=== PATIENT | male | born 1955 | race Caucasian/White ===

== ENCOUNTER 2017-05-09 09:32 | Day surgery (SDC) | payer MEDICARE ==
[~2017-05-09 09:32] MED LIST: BUPIVACAINE HCL 0.5 % INJ/PF 30 ML SDV ONE; CLINDAMYCIN 600 MG/D5W RTU 600 MG/50 ML RTUPB IV PRN; ONDANSETRON HCL INJ/PF 4 MG/2 ML SDV ONE; SUCCINYLCHOLINE CHLORIDE INJ 200 MG/10 ML VIAL ONE
[2017-05-09 10:20] LABS: ANION GAP 14 (5-19); BLOOD UREA NITROGEN 6 mg/dL (7-20); CALCIUM 9.6 mg/dL (8.4-10.2); CARBON DIOXIDE 26 mmol/L (22-30); CHLORIDE 103 mmol/L (98-107); CREATININE RESULT 0.95 mg/dL (0.52-1.25); GLUCOSE 91 mg/dL (75-110); POTASSIUM 3.6 mmol/L (3.6-5.0); SODIUM 143.4 mmol/L (137-145)
[2017-05-09 10:21] LABS: HEMOGLOBIN 14.5 g/dL (13.5-17.0); HGB HCT DIFFERENCE -1.5; MEAN CORPUSCULAR HEMOGLOBIN 27.6 pg (27.0-33.4); MEAN CORPUSCULAR HGB CONC 32.2 g/dL (32.0-36.0); MEAN CORPUSCULAR VOLUME 86 fl (80-97); RED BLOOD COUNT 5.25 10^6/uL (4.35-5.55); RED CELL DISTRIBUTION WIDTH 13.9 % (11.5-14.0); WHITE BLOOD COUNT 13.1 10^3/uL (4.0-10.5)
--- NOTE | 2017-05-09 11:02 | RADIOLOGY REPORT (SQ) ---
EXAM DESCRIPTION: CHEST SINGLE VIEW COMPLETED DATE/TIME: 05/09/2017 10:21 am REASON FOR STUDY: PRE OP RM HOLDING 4 COMPARISON: None. EXAM PARAMETERS: NUMBER OF VIEWS: One view. TECHNIQUE: Single frontal radiographic view of the chest acquired. RADIATION DOSE: NA LIMITATIONS: None. FINDINGS: LUNGS AND PLEURA: No opacities, masses or pneumothorax. No pleural effusion. MEDIASTINUM AND HILAR STRUCTURES: No masses. Contour normal. HEART AND VASCULAR STRUCTURES: Heart normal in size. Normal vasculature. BONES: No acute findings. HARDWARE: Sternotomy wires. Heart valve OTHER: No other significant finding. IMPRESSION: NO ACUTE RADIOGRAPHIC FINDING IN THE CHEST. TECHNICAL DOCUMENTATION: JOB ID: [id number]
--- NOTE | 2017-05-09 12:50 | EKG REPORT ---
SEVERITY:- OTHERWISE NORMAL ECG - SINUS RHYTHM BORDERLINE LEFT AXIS DEVIATION : Confirmed by: Josefina Watt MD 09-May-2017 12:49:28
[2017-05-09] MEDS ORDERED: MIDAZOLAM 2 MG/2 ML INJ ONE (14:47)
[2017-05-09] MEDS ORDERED: FENTANYL CITRATE INJ/PF 250 MCG/5 ML AMPULE ONE (14:48)
[2017-05-09] MEDS ORDERED: PROPOFOL INJ 200 MG/20 ML VIAL IV ONE (14:48)
[2017-05-09] MEDS ORDERED: HYDROMORPHONE HCL INJ/PF 2 MG/ML AMPULE ONE (14:49)
[2017-05-09] MEDS ORDERED: MEPERIDINE HCL/PF INJ 25 MG/1 ML DISP.SYRIN IV PRN (15:23)
[2017-05-09] MEDS ORDERED: FENTANYL CITRATE INJ/PF 100 MCG/2 ML AMPUL IV PRN ×3 (15:23)
[2017-05-09] MEDS ORDERED: DIPHENHYDRAMINE HCL 50 MG/ML VIAL IV PRN (15:23)
--- NOTE | 2017-05-09 16:22 | PDOC DISCHARGE SUMMARY ---
Discharge Summary (SDC) - Discharge Final Diagnosis: Right Cubital Tunnel Syndrome Date of Surgery: 05/09/17 Discharge Date: 05/09/17 Condition: Good Treatment or Instructions: Schedule Follow Up w/ Dr. Radny Terry @ [facility] for Surgery to be seen in 10-14 days or as scheduled [place]: [place]: [place]: May remove dressing on postop day #3, keep incision covered and dry. Ice and elevate May begin finger range of motion attempting to make full fist. Stool softener of choice when on pain medication. Prescriptions: Oxycodone HCl/Acetaminophen [Percocet 5-325 mg Tablet] 1 - 2 tab PO ASDIR PRN # 30 tablet PRN Reason: Discharge Diet: As Tolerated Discharge Activity: No Lifting Over 10 Pounds, No Lifting/Push/Pulling Report the Following to Your Physician Immediately: Fever over 101 Degrees, Unusual Bleeding, Redness, Swelling, Warmth, Increased Soreness, Numbness, Tingling Sensation
[2017-05-09] MEDS ORDERED: MORPHINE SULFATE 10 MG/ML INJ IV PRN (16:25)
[2017-05-09] MEDS ORDERED: OXYCODONE-ACETAMINOPHEN 5-325 MG TABLET PO PRN (16:25)
[2017-05-09] MEDS ORDERED: ONDANSETRON HCL INJ/PF 4 MG/2 ML SDV IV PRN (16:25)
--- NOTE | 2017-05-09 16:25 | Operative Report ---
Operative Report DATE OF SURGERY: 05/09/17 PREOPERATIVE DIAGNOSIS: Right Cubital Tunnel Syndrome POSTOPERATIVE DIAGNOSIS: Same OPERATION: Right Cubital Tunnel Release W/ Subcutaneous Ulnar Nerve Transposition SURGEON: CHARLIE HOANG ANESTHESIA: GA COMPLICATIONS: None ESTIMATED BLOOD LOSS: Minimal PROCEDURE: Indication for above procedure: 61-year-old male with long-standing history of numbness and tingling in his ring and small finger on the right. Patient has increasing pain and notable atrophy of the right upper extremity. At that point we discussed treatment options including operative versus nonoperative intervention but given the atrophy and weakness the joint decision was made to proceed with cubital tunnel release with possible ulnar nerve transposition. Procedure In Detail: Patient was seen and evaluated in the preoperative holding area. The RIGHT upper extremity was initialized and marked. Patient received 2g of Ancef IV for bacterial prophylaxis. Patient was taken back to the operative room where transferred to the operative table and placed under general anesthesia. Once they were adequately anesthetized and a nonsterile tourniquet was placed on the upper extremity. A surgical team debriefing was performed ensuring all instrumentation was available, the surgical procedure was discussed with possible concerns reviewed. The upper extremity was prepped with chlorhexidine and alcohol and draped in a sterile fashion. A timeout was done identifying correct patient, procedure and extremity everyone in attendance agree with this and verbalized no concerns. The extremity was exsanguinated the tourniquet was inflated to 250 mmHg. A longitudinal skin incision was made centered over the cubital tunnel. Careful dissection was done through the overlying soft tissues any peripheral vasculature was carefully coagulated with bipolar cautery. The branches of the medial antebrachial cutaneous nerve were identified and protected throughout the entirety of the case. Once within the confines of the cubital tunnel the ulnar nerve was identified at the proximal aspect of the wound. At this level I carefully released a medial portion of the triceps and the medial intermuscular septum freeing the ulnar nerve proximally of any overlying soft tissue compression. I then continued to track the ulnar nerve distally releasing Magallon's fascia. At the level of the FCU aponeurosis between the 2 heads of the FCU muscle the fascia was released once again relieving any external compression from the ulnar nerve distally to the level of the first motor branch. I then freed up the nerve posteriorly ensuring there is no remaining soft tissue bands of tissue causing compression. During dissection of the nerve careful attention was directed at avoiding disruption of the ulnar nerve blood supply. Elbow range of motion was then done from full flexion to full extension with full flexion there was evidence of anterior subluxation of the ulnar nerve from the groove. And thus I determined patient would require anterior subcutaneous ulnar nerve transposition To perform the transposition skin incision was extended proximally and distally the nerve was further freed from overlying soft tissue distally within the FCU muscle bellies and proximally along the medial intermuscular septum. A section of the medial intermuscular septum was removed to avoid proximal compression or kinking of the nerve after transposition. A vessel loop was placed around the nerve and its posterior vascular suture both of which were carefully transposed anteriorly. At this point I checked the nerve proximally and distally to confirm there was no compression with range of motion from full flexion to full extension. Once I ensured no compression of the nerve I carefully dissected the subcutaneous tissues anteriorly taking note to avoid any branches of the medial antebrachial cutaneous nerve. Once I developed an appropriate sized flap of adipose tissue this was carefully secured to the medial epicondyle with a 3-0 Vicryl suture while a Melrose was placed at the level of the ulnar nerve to ensure no external compression from my subcutaneous flap. Once this was complete I once again flexed and extended the elbow ensuring no proximal or distal compression of the ulnar nerve. The tourniquet was then deflated. Compression was placed to the wound for 2 minutes. I then identified any peripheral bleeding and carefully coagulated with bipolar cautery. The wound was then irrigated with normal saline. Subcutaneous tissues were closed with interrupted 3-0 Monocryl closed with medhat. Wounds dressed with 4 x 4's, soft roll and a posterior splint with the elbow at 70. Sponge counts, instrument counts, needle counts counts were correct. Patient was then awoken from anesthesia. Transferred from the operating room table to the operating room stretcher. There was no intraoperative complications patient tolerated procedure well stable to PACU. Postoperative plan: Patient will follow-up in the office as scheduled which point we will proceed with wound check. He may begin gentle range of motion exercises but avoid any heavy lifting at her first postoperative appointment.
[2017-05-09] MEDS: FENTANYL CITRATE INJ/PF 100 MCG/2 ML AMPUL ONE ×2 (16:40→16:45)
[2017-05-09 19:15] VITALS: BP 150/103
== END 2017-05-09 19:15 | disposition home or self-care (01) ==
LOC: OROUT 09:32 → EDBD 11:45 → OROUT 19:15
PROVIDERS: ATTEND Orthopaedic Surgery
PROC: 01N40ZZ Release Ulnar Nerve, Open Approach (ICD-10-PCS; principal; 2017-05-09 12:15)
DX: G56.21 Lesion of ulnar nerve, right upper limb (principal); J45.909 Unspecified asthma, uncomplicated; I10 Essential (primary) hypertension; M19.90 Unspecified osteoarthritis, unspecified site; E66.9 Obesity, unspecified; Z96.653 Presence of artificial knee joint, bilateral; Z96.641 Presence of right artificial hip joint; Z68.39 Body mass index [BMI] 39.0-39.9, adult; Z79.1 Long term (current) use of non-steroidal anti-inflammatories (NSAID); Z79.899 Other long term (current) drug therapy; Z79.891 Long term (current) use of opiate analgesic
CPT/HCPCS: 36415; 85027; 80048; 71010; 93005; 93010; 64718; J2250; J3010 ×2; J1170; J0330; J2405; J2704; 1810

== ENCOUNTER 2019-07-16 13:58 | Day surgery (SDC) | payer MEDICARE ==
[2019-07-10 10:15] LABS: ABSOLUTE BASOPHILS # (AUTO) 0.1 10^3/uL (0.0-0.2); ABSOLUTE EOSINOPHILS # (AUTO) 0.9 10^3/uL (0.0-0.6); ABSOLUTE LYMPHOCYTES (AUTO) 1.7 10^3/uL (0.5-4.7); ABSOLUTE MONOCYTES (AUTO) 0.7 10^3/uL (0.1-1.4); ABSOLUTE NEUT (AUTO) 5.4 10^3/uL (1.7-8.2); BASOPHILS % (AUTO) 0.7 % (0-2); EOSINOPHILS % (AUTO) 10.2 % (0-6); HEMATOCRIT 42.7 % (37.9-51.0); HEMOGLOBIN 14.3 g/dL (13.5-17.0); LYMPHOCYTES % (AUTO) 19.4 % (13-45); MEAN CORPUSCULAR HEMOGLOBIN 29.4 pg (27.0-33.4); MEAN CORPUSCULAR HGB CONC 33.4 g/dL (32.0-36.0); MEAN CORPUSCULAR VOLUME 88 fl (80-97); MONOCYTES % (AUTO) 7.6 % (3-13); PLATELET COUNT 353 10^3/uL (150-450); RED BLOOD COUNT 4.86 10^6/uL (4.35-5.55); RED CELL DISTRIBUTION WIDTH 14.2 % (11.5-14.0); SEGMENTED NEUTROPHILS % (AUTO) 62.1 % (42-78); TOTAL CELLS COUNTED % (AUTO) 100 %; WHITE BLOOD COUNT 8.7 10^3/uL (4.0-10.5)
--- NOTE | 2019-07-10 10:16 | RADIOLOGY REPORT (SQ) ---
EXAM DESCRIPTION: CHEST PA/LATERAL COMPLETED DATE/TIME: 07/10/2019 9:59 am REASON FOR STUDY: PRE-OP COMPARISON: 05/09/2017 EXAM PARAMETERS: NUMBER OF VIEWS: two views TECHNIQUE: Digital Frontal and Lateral radiographic views of the chest acquired. RADIATION DOSE: NA LIMITATIONS: none FINDINGS: LUNGS AND PLEURA: No focal consolidation, pleural effusion or pneumothorax. Bilateral nip ple shadows at the lung bases. Mildly increased AP diameter. MEDIASTINUM AND HILAR STRUCTURES: No discrete mass. HEART AND VASCULAR STRUCTURES: Normal cardiac silhouette size. Ectatic thoracic aorta. BONES: Median sternotomy changes. Partially visualized cervical fusion hardware. HARDWARE: Atrial appendage clip. Median sternotomy hardware. OTHER: No other significant finding. IMPRESSION: No evidence of acute cardiopulmonary process. TECHNICAL DOCUMENTATION: JOB ID: [id number] [employer]- All Rights Reserved Reading location - IP/workstation name: [email or web address]
[2019-07-10 10:21] LABS: APPEARANCE,URINE CLEAR; BILIRUBIN,URINE NEGATIVE (NEGATIVE); COLOR,URINE STRAW; GLUCOSE, URINE NEGATIVE (NEGATIVE); KETONES,URINE NEGATIVE (NEGATIVE); LEUKOCYTE ESTERASE,URINE NEGATIVE (NEGATIVE); NITRITE,URINE NEGATIVE (NEGATIVE); PROTEIN,URINE NEGATIVE (NEGATIVE); URINE SPECIFIC GRAVITY 1.004; UROBILINOGEN,URINE NEGATIVE mg/dL (<2.0)
[2019-07-10 10:48] LABS: ANION GAP 11 (5-19); BLOOD UREA NITROGEN 6 mg/dL (7-20); CALCIUM 9.6 mg/dL (8.4-10.2); CARBON DIOXIDE 27 mmol/L (22-30); CHLORIDE 100 mmol/L (98-107); GLUCOSE 85 mg/dL (75-110); POTASSIUM 4.6 mmol/L (3.6-5.0)
--- NOTE | 2019-07-10 11:19 | EKG REPORT ---
SEVERITY:- NORMAL ECG - SINUS RHYTHM : Confirmed by: Anne-Marie Barlow 10-Jul-2019 11:18:40
[~2019-07-16 13:58] MED LIST changes: -BUPIVACAINE HCL 0.5 % INJ/PF 30 ML SDV ONE; +CEFAZOLIN SODIUM 2 GM in DEXTROSE 5%-WATER 100 ML IV PRN; -ONDANSETRON HCL INJ/PF 4 MG/2 ML SDV ONE; +RINGERS SOLUTION,LACTATED 1,000 ML IV PRN
[2019-07-16] MEDS ORDERED: LIDOCAINE 1% INJ-PF (10 MG/ML) 30 ML SDV ONE (15:55)
[2019-07-16] MEDS ORDERED: BUPIVACAINE HCL 0.5 % INJ/PF 30 ML SDV ONE (15:55)
[2019-07-16] MEDS ORDERED: ALBUTEROL SULFATE 0.083% NEB 2.5 MG/3 ML AMPUL NEB ONE (16:00)
[2019-07-16] MEDS ORDERED: RINGERS SOLUTION,LACTATED 1,000 ML IV ONE (16:00)
[2019-07-16] MEDS ORDERED: MIDAZOLAM 2 MG/2 ML INJ ONE ×2 (16:15→16:43)
[2019-07-16] MEDS ORDERED: FENTANYL CITRATE INJ/PF 250 MCG/5 ML AMPULE ONE (16:15)
[2019-07-16] MEDS ORDERED: ONDANSETRON HCL INJ/PF 4 MG/2 ML SDV ONE (16:16)
[2019-07-16] MEDS ORDERED: DEXAMETHASONE SOD PHOSPHATE INJ 4 MG/1 ML VIAL ONE (16:16)
[2019-07-16] MEDS ORDERED: PROPOFOL INJ 200 MG/20 ML VIAL IV ONE ×2 (16:18→19:28)
[2019-07-16] MEDS ORDERED: CLINDAMYCIN 600 MG/D5W RTU 600 MG/50 ML RTUPB IV ONE (17:15)
[2019-07-16] MEDS ORDERED: FENTANYL CITRATE INJ/PF 100 MCG/2 ML AMPUL IV PRN ×4 (18:42→18:54)
[2019-07-16] MEDS ORDERED: DIPHENHYDRAMINE HCL 50 MG/ML VIAL IV PRN (18:42)
[2019-07-16] MEDS ORDERED: MORPHINE SULFATE 10 MG/ML INJ IV PRN (18:42)
[2019-07-16] MEDS ORDERED: MEPERIDINE HCL/PF INJ 25 MG/1 ML DISP.SYRIN IV PRN (18:42)
[2019-07-16] MEDS ORDERED: PROMETHAZINE HCL INJ 25 MG/1 ML VIAL IV PRN ×2 (18:42)
[2019-07-16] MEDS ORDERED: LIDOCAINE 2%/EPINEPHRINE INJ 20 ML VIAL ONE (18:46)
[2019-07-16] MEDS ORDERED: LIDOCAINE 2% INJ (20 MG/ML) 20 ML MDV ONE (18:46)
[2019-07-16] MEDS ORDERED: ROPIVACAINE HCL 0.5% INJ/PF (5 MG/1 ML) 30 ML SDV ONE (18:46)
[2019-07-16] MEDS ORDERED: OXYCODONE-ACETAMINOPHEN 5-325 MG TABLET PO PRN (18:54)
--- NOTE | 2019-07-16 18:55 | Discharge Summary ---
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 Randy Terry @ [facility] for Surgery to be seen in 10-14 days or as scheduled [place]: [place]: [place]: Ice and elevate Keep splint clean/dry/intact, do not remove. If your fingers become numb please unwrap the Alin wrap but leave the splint in place, if the sensation does not return within 30 minutes please return to the emergency department. May begin finger range of motion attempting to make full fist. Please use ibuprofen (Motrin or Advil) 600-800 mg every 8 hours as needed for pain or fever DO NOT TAKE w/ TORADOL may use once TORADOL complete. You may also use acetaminophen (Tylenol) 1000 mg every 4-6 hours as needed for pain or fever. Please be aware that many medications contain acetaminophen, do not exceed a total of 1000 mg of acetaminophen every 6 hours. If ibuprofen and acetaminophen are not sufficient for your pain you may take the Percocet/[place]. Please be aware that the Percocet/[place] does contain Tylenol. Stool softener of choice when on pain medication. USE OF [id number] IBUPROFEN: Ibuprofen (Advil, Nuprin, Medipren, Motrin IB) is a medication for fever and pain control. In addition, it has anti- inflammatory effects which may be beneficial, especially in the treatment of injuries. It's best to take ibuprofen with food. Persons with ulcer disease or allergy to aspirin should notify their physician of this before taking ibuprofen. Ibuprofen can be given every four to six hours, for a total of four doses daily. Age Pain or fever dose Antiinflammatory dose 6-8 yr 200 mg (1 tab) 200 mg (1 tab) 9-11 yr 200 mg (1 tab) 200-400 mg (1-2 tab) 11-14 yr 200-400 mg (1-2 tab) 400 mg (2 tab) 15-adult 400 mg (2 tab) 600 mg (3 tab) ORAL NARCOTIC MEDICATION: You have been given a prescription for pain control. This medication is a narcotic. It's best taken with food, as nausea can result if taken on an empty stomach. Don't operate machinery or drive within six hours of taking this medication. Do not combine this medicine with alcohol, or with any medication which can cause sedation (such as cold tablets or sleeping pills) unless you get permission from the physician. Narcotics tend to cause constipation. If possible, drink plenty of fluids and eat a diet high in fiber and fruits. Please be aware that prescription narcotics also have the potential for abuse. People become addicted to these medications because of the general sense of wellbeing that they induce. This feeling along with a significant reduction in tension, anxiety, and aggression provides a stimulating seductive quality to these drugs. Once your pain is under control, we encourage you to discard your unused narcotics. Prescriptions: Ketorolac Tromethamine [Toradol 10 mg Tablet] 10 mg PO Q8HP PRN #12 tablet PRN Reason: Oxycodone HCl/Acetaminophen [Percocet 10-325 Mg Tablet] 1 each PO Q6 PRN #25 tablet PRN Reason: Referrals: JING QUICK MD [Primary Care Provider] - Respiratory Treatments at Home: Deep Breathing/Coughing Discharge Activity: No Lifting Over 10 Pounds, No Lifting/Push/Pulling Report the Following to Your Physician Immediately: Fever over 101 Degrees, Unusual Bleeding, Redness, Swelling, Warmth, Increased Soreness
[2019-07-16] MEDS ORDERED: LIDOCAINE 1% INJ (10 MG/ML) 10 ML MDV INJ ONE (19:40)
--- NOTE | 2019-07-16 20:01 | Operative Report ---
Operative Report DATE OF SURGERY: 07/16/19 PREOPERATIVE DIAGNOSIS: Right wrist scapholunate advanced collapse POSTOPERATIVE DIAGNOSIS: Same OPERATION: Right wrist proximal row carpectomy. Right wrist PIN neurectomy SURGEON: CHARLIE HOANG ANESTHESIA: GA COMPLICATIONS: None ESTIMATED BLOOD LOSS: Minimal PROCEDURE: Indication for above procedure: 63-year-old male with long-standing history of right wrist discomfort. Patient had radiographs confirming scapholunate advanced collapse. Attempted conservative measures including multiple injections, immobilization and anti- inflammatories. After failed conservative measures we discussed treatment options decision was made to proceed with operative intervention. Risk and benefits were explained to the patient who verbalized understanding consented for surgical procedure. Procedure In Detail: Patient was seen and evaluated in the preoperative holding area. The RIGHT upper extremity was initialized and marked. Patient received 2g of Ancef IV for bacterial prophylaxis. Patient was taken back to the operative room where transferred to the operative table and placed under general anesthesia. Once they were adequately anesthetized a nonsterile tourniquet was placed on the upper extremity. A surgical team debriefing was performed ensuring all instrumentation was available, the surgical procedure was discussed with possible concerns reviewed. The upper extremity was prepped with chlorhexidine and alcohol and draped in a sterile fashion. A timeout was done identifying correct patient, procedure and extremity everyone in attendance agree with this and verbalized no concerns. The extremity was exsanguinated the tourniquet was inflated to 250 mmHg. Longitudinal skin incision was made just ulnar to Monico's tubercle. Blunt dissection was performed. Branches of the dorsal ulnar sensory nerves were identified and retracted. The EPL tendon was identified and third dorsal compartment release. EPL transposed the second and fourth dorsal compartments were elevated. Along the floor of the fourth dorsal compartment along its radial aspect the posterior interosseous nerve was resected. Once the fourth and second dorsal compartments were elevated the underlying wrist capsule was identified. A Corea type capsulotomy was made based ulnarly. Intra-articular inspection noted advanced degeneration of the radiocarpal joint no degeneration of the capitolunate or radiolunate articulation was appreciated thus decision was made to proceed with proximal row carpectomy. The STT and SC ligaments to the scaphoid were released and scaphoid was adequately excised. The scapholunate and lunotriquetral ligaments were released to adequately remove the lunate. Volar attachments of the lunate were elevated directly off to avoid deep injury. Lastly triquetrum was isolated from the pisiform triquetral ligament and removed. Throughout carpectomy the volar wrist ligament specifically RSC ligament was not disrupted to avoid future ulnar translocation. Under direct visualization ulnar translocation was attempted without subluxation and notable intact ligament. The distal aspect of the radial styloid was resected once again preserving the RSC ligament. Wound was then copiously irrigated with normal saline. There was adequate contour of the capitate within the lunate fossa the previous capsulotomy was then reapproximated with 3-0 Ethibond suture. Retinaculum was reapproximated with 3-0 Monocryl suture. Tourniquet was deflated. Any peripheral bleeding was controlled with bipolar cautery into the wound was dry. C-arm fluoroscopy was obtained to confirm maintained reduction of the capitate within the lunate fossa. Subcutaneous tissues were closed with interrupted 3-0 Monocryl suture. Skin was closed with running subcuticular 4-0 Monocryl reinforced with Dermabond and Steri-Strips. Patient was placed in a sugar tong splint with adequate mold. Final C-arm fluoroscopy was once again obtained however there was subluxation of the capitate into the scaphoid fossa thus decision was made to proceed with reprepping and placement of transarticular [place] while to maintain alignment until capsule healing was confirmed. Local block was performed to the radial aspect of the wrist with 10 cc 1% lidocaine without epinephrine. Wrist was prepped with ChloraPrep and draped in a sterile fashion. Ioban was placed over the previous extremity. On oscillate a 0.062 K wire was placed across the radius into the lunate maintaining reduction within the lunate fossa there is no evidence of subluxation or translocation on AP or lateral projection. K wire was bent and cut Xeroform placed. Wound was dressed with 4 x 4's and patient was placed in a volar wrist splint. Sponge counts, instrument counts, needle counts were correct. Patient was then awoken from anesthesia. Transferred from the operating room table to the operating room stretcher. There was no intraoperative complications patient tolerated procedure well stable to PACU. Postop plan: Patient follow in the office in 2 weeks at which point will be transition to a short arm cast after short arm cast we will obtain radiographs. We will continue cast for 4 weeks postoperatively at that time we will proceed with K wire removal. At which point we will begin occupational therapy focusing on range of motion and strengthening.
[2019-07-16 21:10] VITALS: BP 155/97
--- NOTE | 2019-07-17 08:15 | RADIOLOGY REPORT (SQ) ---
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 FLUOROSCOPY TIME: 1 minutes 45 seconds Spot images saved to PACS. TECHNIQUE: Intra-operative images acquired during surgical procedure to evaluate progress. NUMBER OF IMAGES: 6 LIMITATIONS: None. FINDINGS: Fluoroscopy was provided for intraoperative procedure. Please refer to the operative repo rt for further discussion. IMPRESSION: IMAGE(S) OBTAINED DURING PROCEDURE. COMMENT: Quality ID [id number]: Final reports for procedures using fluoroscopy that document radiation exp osure indices, or exposure time and number of fluorographic images (if radiation exposure indices are not available) Please consult full operative report of the attending physician for description of the procedure. TECHNICAL DOCUMENTATION: JOB ID: [id number] [employer]- All Rights Reserved Reading location - IP/workstation name: [email or web address]
--- NOTE | 2019-07-17 08:15 | RADIOLOGY REPORT (SQ) ---
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 FLUOROSCOPY TIME: 1 minutes 45 seconds Spot images saved to PACS. TECHNIQUE: Intra-operative images acquired during surgical procedure to evaluate progress. NUMBER OF IMAGES: 6 LIMITATIONS: None. FINDINGS: Fluoroscopy was provided for intraoperative procedure. Please refer to the operative repo rt for further discussion. IMPRESSION: IMAGE(S) OBTAINED DURING PROCEDURE. COMMENT: Quality ID [id number]: Final reports for procedures using fluoroscopy that document radiation exp osure indices, or exposure time and number of fluorographic images (if radiation exposure indices are not available) Please consult full operative report of the attending physician for description of the procedure. TECHNICAL DOCUMENTATION: JOB ID: [id number] [employer]- All Rights Reserved Reading location - IP/workstation name: [email or web address]
== END 2019-07-16 21:00 | disposition home or self-care (01) ==
LOC: OROUT 13:58
PROVIDERS: ATTEND Orthopaedic Surgery
DX: M19.231 Secondary osteoarthritis, right wrist (principal); Z79.899 Other long term (current) drug therapy; M25.531 Pain in right wrist; I48.91 Unspecified atrial fibrillation; I10 Essential (primary) hypertension; Z79.51 Long term (current) use of inhaled steroids; Z01.810 Encounter for preprocedural cardiovascular examination; Z01.811 Encounter for preprocedural respiratory examination
CPT/HCPCS: 64772; 25210; 93005; 36415; 85025; 80048; 81001; 71046; 73110; 93010; J2795; J2250; J3490 ×4; J1100; J3010; J2405; J2704; C1713; J0330; J0690; J7060